=== PATIENT | male | born 1950 | race Caucasian/White ===

== ENCOUNTER 2016-11-26 09:00 | Inpatient (IN) | payer MEDICARE, MEDICAID ==
[~2016-11-26] VITALS: Ht 165.1 cm; Wt 58.7 kg
[~2016-11-26 09:00] MED LIST: ASPI-605 PO; CARV25TA2 PO; FERR325T28 PO; GABA-534 PO; HYDR-4077 PO; HYDR12.55 PO; INSU100C10 SQ; INSU100C7 SQ; SIMV20TA6 PO; VALS160T2 PO
[2016-11-26 09:40] LABS: BASOPHILS % (AUTO) 0.2 % (0.0-2.0); EOSINOPHILS # (AUTO) 0.3 /CMM (0.0-0.7); EOSINOPHILS % (AUTO) 3.9 % (0.0-6.0); HEMATOCRIT 31 % (39-51); HEMOGLOBIN 10.1 g/dL (13.5-17.5); LYMPHOCYTES # (AUTO) 0.5 /CMM (0.8-4.8); LYMPHOCYTES % (AUTO) 6.4 % (20.0-44.0); MEAN CORPUSCULAR HEMOGLOBIN 28 PG (26.0-33.0); MEAN CORPUSCULAR HGB CONC 33 g/dl (31.0-36.0); MEAN CORPUSCULAR VOLUME 84 fL (80-96); MONOCYTES # (AUTO) 0.4 /CMM (0.1-1.30); MONOCYTES % (AUTO) 4.8 % (2.0-12.0); NEUTROPHILS # (AUTO) 7.2 /CMM (1.8-8.9); NEUTROPHILS % (AUTO) 84.7 % (43.0-81.0); PLATELET COUNT (AUTO) 169 /CMM (150-450); RDW COEFFICIENT OF VARIATION 14.2 (11.5-15.0); RED BLOOD CELL COUNT(AUTO) 3.63 MIL/uL (4.5-6.0); WHITE BLOOD COUNT (AUTO) 8.5 K/uL (4.3-11.0)
[2016-11-26] MEDS ORDERED: ONDA-25 PO (09:50)
[2016-11-26] MEDS ORDERED: VALS80TA2 PO (09:50)
[2016-11-26] MEDS ORDERED: PANT40TA4 PO (09:52)
[2016-11-26] MEDS ORDERED: NIFE60TA69 PO (09:53)
[2016-11-26] MEDS ORDERED: SEVE800T8 PO (09:54)
[2016-11-26 10:18] LABS: CALCIUM, SERUM 8.8 mg/dL (8.5-10.1); CARBON DIOXIDE 27 mmol/L (21-32); CHLORIDE 99 mmol/L (98-107); GLUCOSE 130 mg/dL (74-106); POTASSIUM 5.4 mmol/L (3.5-5.1); SODIUM SERUM 138 mmol/L (136-145)
[2016-11-26 10:19] LABS: ALKALINE PHOSPHATASE 82 U/L (46-116); BILIRUBIN,DIRECT 0.2 mg/dL (0.0-0.2); BILIRUBIN,TOTAL 0.5 mg/dL (0.2-1.0); UREA NITROGEN, BLOOD 40 mg/dL (7-18)
[2016-11-26 10:20] LABS: ALANINE AMINOTRANSFERASE 9 U/L (12-78); ALBUMIN 3.4 g/dL (3.4-5.0); ASPARTATE AMINOTRANSFERASE 12 U/L (15-37); TROPONIN I 0.113 ng/mL (0.00-0.056)
[2016-11-26 10:22] LABS: CREATININE 8.7 mg/dL (0.6-1.3)
[2016-11-26] MEDS ORDERED: VANCOMYCIN 1 GM in IV D5W 250 ML IV ONE (10:30)
[2016-11-26] MEDS ORDERED: IV SET PRIMARY PUMP SET 1 EA INFUS.SET MC ONE (10:37)
[2016-11-26 12:00] VITALS: BP 147/69
[2016-11-26] MEDS ORDERED: DOSE PER PHARMACY (MD SPECIFY MEDICATION) 1 EA XX PRN (12:00)
[2016-11-26] MEDS ORDERED: ALBUTEROL FS 2.5 MG/0.5 ML VIAL.NEB NEB PRN (12:00)
[2016-11-26] MEDS ORDERED: IPRATROPIUM NEB FS 0.5 MG/2.5 ML AMPUL.NEB NEB PRN (12:00)
[2016-11-26] MEDS: BLOOD SUGAR DIAGNOSTIC 1 EACH STRIP IN SCH ×2 (12:00→21:44)
[2016-11-26] MEDS ORDERED: ONDANSETRON HCL/PF 4 MG/2 ML VIAL IV PRN (12:00)
[2016-11-26] MEDS ORDERED: DEXTROSE 50%-WATER 50 ML DISP.SYRIN IV PRN (12:00)
[2016-11-26] MEDS ORDERED: ACETAMINOPHEN 650 MG/20.3 ML UDC NG PRN (12:00)
[2016-11-26] MEDS ORDERED: EPOETIN ALFA (10,000 UNIT) 10,000 UNIT/ML VIAL SQ ONE (13:00)
[2016-11-26] MEDS ORDERED: DILTIAZEM HCL 25 MG IV IV STA (13:30)
[2016-11-26] MEDS ORDERED: LEVOFLOXACIN 500 MG /D5W 100ML 500 MG in PREMIX 1 EA IV SCH (14:00)
[2016-11-26 16:00] VITALS: BP 168/83
[2016-11-26] MEDS: CARVEDILOL 12.5 MG TABLET PO SCH (16:53)
[2016-11-26] MEDS: VALSARTAN 80 MG TABLET PO SCH (16:53)
[2016-11-26] MEDS ORDERED: SECONDARY IV SET 1 EA INFUS.SET MC ONE (17:05)
[2016-11-26] MEDS: SEVELAMER CARBONATE 800 MG TABLET PO SCH (18:58)
[2016-11-26 20:00] VITALS: BP 150/57
[2016-11-26] MEDS: GABAPENTIN 300 MG CAPSULE PO SCH (21:44)
[2016-11-26] MEDS: INSULIN REGULAR, HUMAN 100 UNIT/ML 3 ML VIAL SQ PRN (21:54)
[2016-11-26] MEDS: HEPARIN SODIUM, PORCINE 5000 UNITS/1 ML VIAL SQ SCH (21:54)
[2016-11-27] VITALS (7 sets, daily range): BP systolic 108–164; BP diastolic 53–75
[2016-11-27] MEDS: BLOOD SUGAR DIAGNOSTIC 1 EACH STRIP IN SCH ×4 (06:41→21:07)
[2016-11-27 06:43] LABS: BASOPHILS % (AUTO) 0.8 % (0.0-2.0); EOSINOPHILS # (AUTO) 0.5 /CMM (0.0-0.7); EOSINOPHILS % (AUTO) 7.4 % (0.0-6.0); HEMATOCRIT 30 % (39-51); HEMOGLOBIN 9.9 g/dL (13.5-17.5); LYMPHOCYTES # (AUTO) 0.5 /CMM (0.8-4.8); LYMPHOCYTES % (AUTO) 7.5 % (20.0-44.0); MEAN CORPUSCULAR HEMOGLOBIN 28 PG (26.0-33.0); MEAN CORPUSCULAR HGB CONC 33 g/dl (31.0-36.0); MEAN CORPUSCULAR VOLUME 84 fL (80-96); MONOCYTES # (AUTO) 0.3 /CMM (0.1-1.30); NEUTROPHILS # (AUTO) 4.9 /CMM (1.8-8.9); NEUTROPHILS % (AUTO) 79.3 % (43.0-81.0); PLATELET COUNT (AUTO) 143 /CMM (150-450); RDW COEFFICIENT OF VARIATION 14.3 (11.5-15.0); RED BLOOD CELL COUNT(AUTO) 3.55 MIL/uL (4.5-6.0); WHITE BLOOD COUNT (AUTO) 6.1 K/uL (4.3-11.0)
[2016-11-27 07:07] LABS: CALCIUM, SERUM 8.2 mg/dL (8.5-10.1); CREATININE 6.8 mg/dL (0.6-1.3); PHOSPHORUS 4.6 mg/dL (2.5-4.9); POTASSIUM 4.7 mmol/L (3.5-5.1)
[2016-11-27] MEDS: ASPIRIN EC 81 MG TABLET.DR PO SCH (09:03)
[2016-11-27] MEDS: PANTOPRAZOLE 40 MG TABLET.DR PO SCH (09:03)
[2016-11-27] MEDS: SEVELAMER CARBONATE 800 MG TABLET PO SCH ×3 (09:03→17:04)
[2016-11-27] MEDS: CARVEDILOL 12.5 MG TABLET PO SCH ×2 (09:04→20:42)
[2016-11-27] MEDS: NIFEdipine XL 60 MG TAB PO SCH (09:06)
[2016-11-27] MEDS: VALSARTAN 80 MG TABLET PO SCH ×2 (09:07→16:53)
[2016-11-27] MEDS: HEPARIN SODIUM, PORCINE 5000 UNITS/1 ML VIAL SQ SCH ×2 (09:08→20:44)
[2016-11-27] MEDS: INSULIN REGULAR, HUMAN 100 UNIT/ML 3 ML VIAL SQ PRN ×3 (12:17→21:15)
[2016-11-27] MEDS: CEFTRIAXONE 1 G in IV D5W 50 ML IV SCH (20:41)
[2016-11-27] MEDS ORDERED: SECONDARY IV SET 1 EA INFUS.SET MC ONE (20:47)
[2016-11-27] MEDS ORDERED: IV NS 0.9% 250 ML IV ONE (20:47)
[2016-11-27] MEDS: GABAPENTIN 300 MG CAPSULE PO SCH (21:09)
[2016-11-28] MEDS: BLOOD SUGAR DIAGNOSTIC 1 EACH STRIP IN SCH ×4 (06:29→22:22)
[2016-11-28 06:45] LABS: BASOPHILS % (AUTO) 0.7 % (0.0-2.0); EOSINOPHILS # (AUTO) 0.4 /CMM (0.0-0.7); HEMATOCRIT 28 % (39-51); HEMOGLOBIN 9.4 g/dL (13.5-17.5); LYMPHOCYTES # (AUTO) 0.6 /CMM (0.8-4.8); LYMPHOCYTES % (AUTO) 16.1 % (20.0-44.0); MEAN CORPUSCULAR HEMOGLOBIN 28 PG (26.0-33.0); MEAN CORPUSCULAR HGB CONC 34 g/dl (31.0-36.0); MEAN CORPUSCULAR VOLUME 84 fL (80-96); MONOCYTES # (AUTO) 0.3 /CMM (0.1-1.30); MONOCYTES % (AUTO) 7.2 % (2.0-12.0); NEUTROPHILS # (AUTO) 2.5 /CMM (1.8-8.9); PLATELET COUNT (AUTO) 162 /CMM (150-450); RDW COEFFICIENT OF VARIATION 14.4 (11.5-15.0); RED BLOOD CELL COUNT(AUTO) 3.35 MIL/uL (4.5-6.0); WHITE BLOOD COUNT (AUTO) 3.9 K/uL (4.3-11.0)
[2016-11-28 06:59] LABS: PHOSPHORUS 3.9 mg/dL (2.5-4.9); POTASSIUM 4.9 mmol/L (3.5-5.1)
[2016-11-28 08:00] VITALS: BP 126/55
[2016-11-28] MEDS: SEVELAMER CARBONATE 800 MG TABLET PO SCH ×3 (08:49→17:31)
[2016-11-28] MEDS: ASPIRIN EC 81 MG TABLET.DR PO SCH (08:52)
[2016-11-28] MEDS: PANTOPRAZOLE 40 MG TABLET.DR PO SCH (08:52)
[2016-11-28] MEDS: HEPARIN SODIUM, PORCINE 5000 UNITS/1 ML VIAL SQ SCH ×2 (08:59→20:33)
[2016-11-28] MEDS: VALSARTAN 80 MG TABLET PO SCH ×2 (09:00→17:31)
[2016-11-28] MEDS: CARVEDILOL 12.5 MG TABLET PO SCH ×2 (09:00→20:33)
[2016-11-28] MEDS: NIFEdipine XL 60 MG TAB PO SCH (09:00)
[2016-11-28] MEDS ORDERED: LEVOFLOXACIN (500MG) 500 MG TABLET PO SCH (14:00)
[2016-11-28] MEDS: INSULIN REGULAR, HUMAN 100 UNIT/ML 3 ML VIAL SQ PRN ×3 (14:46→22:23)
[2016-11-28] MEDS ORDERED: EPOETIN ALFA (10,000 UNIT) 10,000 UNIT/ML VIAL SQ ONE (15:00)
[2016-11-28 16:00] VITALS: BP 154/70
[2016-11-28] MEDS: LACTOBACILLUS RHAMNOSUS GG 1 EACH CAP.SPRINK PO SCH (17:31)
[2016-11-28 20:00] VITALS: BP 145/65
[2016-11-28] MEDS: CEFTRIAXONE 1 G in IV D5W 50 ML IV SCH (20:33)
[2016-11-28] MEDS: GABAPENTIN 300 MG CAPSULE PO SCH (22:23)
[2016-11-29 06:40] LABS: HEMATOCRIT 31 % (39-51); HEMOGLOBIN 10.1 g/dL (13.5-17.5); MEAN CORPUSCULAR HEMOGLOBIN 27 PG (26.0-33.0); MEAN CORPUSCULAR HGB CONC 33 g/dl (31.0-36.0); MEAN CORPUSCULAR VOLUME 83 fL (80-96); PLATELET COUNT (AUTO) 208 /CMM (150-450); RED BLOOD CELL COUNT(AUTO) 3.69 MIL/uL (4.5-6.0); WHITE BLOOD COUNT (AUTO) 5.6 K/uL (4.3-11.0)
[2016-11-29 06:41] LABS: BASOPHILS % (AUTO) 0.6 % (0.0-2.0); CALCIUM, SERUM 8.2 mg/dL (8.5-10.1); CREATININE 6.3 mg/dL (0.6-1.3); EOSINOPHILS # (AUTO) 0.4 /CMM (0.0-0.7); EOSINOPHILS % (AUTO) 7.2 % (0.0-6.0); LYMPHOCYTES # (AUTO) 0.8 /CMM (0.8-4.8); LYMPHOCYTES % (AUTO) 14.4 % (20.0-44.0); MONOCYTES # (AUTO) 0.4 /CMM (0.1-1.30); MONOCYTES % (AUTO) 7.6 % (2.0-12.0); NEUTROPHILS # (AUTO) 3.9 /CMM (1.8-8.9); NEUTROPHILS % (AUTO) 70.2 % (43.0-81.0); PHOSPHORUS 2.8 mg/dL (2.5-4.9); POTASSIUM 4.7 mmol/L (3.5-5.1)
[2016-11-29] MEDS: BLOOD SUGAR DIAGNOSTIC 1 EACH STRIP IN SCH (06:48)
[2016-11-29] MEDS: INSULIN REGULAR, HUMAN 100 UNIT/ML 3 ML VIAL SQ PRN (06:52)
[2016-11-29 08:00] VITALS: BP 128/59
[2016-11-29] MEDS: LACTOBACILLUS RHAMNOSUS GG 1 EACH CAP.SPRINK PO SCH (08:54)
[2016-11-29] MEDS: SEVELAMER CARBONATE 800 MG TABLET PO SCH (08:54)
[2016-11-29] MEDS: ASPIRIN EC 81 MG TABLET.DR PO SCH (08:54)
[2016-11-29] MEDS: CARVEDILOL 12.5 MG TABLET PO SCH (08:55)
[2016-11-29] MEDS: PANTOPRAZOLE 40 MG TABLET.DR PO SCH (08:55)
[2016-11-29] MEDS: NIFEdipine XL 60 MG TAB PO SCH (08:55)
[2016-11-29 08:56] VITALS: BP 128/59
[2016-11-29] MEDS: VALSARTAN 80 MG TABLET PO SCH (08:56)
[2016-11-29] MEDS: HEPARIN SODIUM, PORCINE 5000 UNITS/1 ML VIAL SQ SCH (09:03)
== END 2016-11-29 15:30 | disposition home or self-care (01) | DRG 193 ==
LOC: ER 09:03 → TELE 10:44 → MED 11-27 08:41
PROVIDERS: ADMIT Internal Medicine Nephrology; ATTEND Internal Medicine Nephrology
PROC: 5A1D60Z (ICD-10-PCS; principal; 2016-11-26)
DX: J15.9 Unspecified bacterial pneumonia (principal); N18.6 End stage renal disease; I21.4 Non-ST elevation (NSTEMI) myocardial infarction; J96.01 Acute respiratory failure with hypoxia; I13.2 Hypertensive heart and chronic kidney disease with heart failure and with stage 5 chronic kidney disease, or end stage renal disease; E87.2 Acidosis; E11.22 Type 2 diabetes mellitus with diabetic chronic kidney disease; I50.9 Heart failure, unspecified; D64.9 Anemia, unspecified; E78.5 Hyperlipidemia, unspecified; E87.5 Hyperkalemia; I25.10 Atherosclerotic heart disease of native coronary artery without angina pectoris; J45.909 Unspecified asthma, uncomplicated; K21.9 Gastro-esophageal reflux disease without esophagitis; Z87.01 Personal history of pneumonia (recurrent); Z99.2 Dependence on renal dialysis; Z99.81 Dependence on supplemental oxygen; I25.2 Old myocardial infarction; J32.9 Chronic sinusitis, unspecified; E83.9 Disorder of mineral metabolism, unspecified
CPT/HCPCS: 36415; 70220-TC; 71010-TC; 80048-TC; 80076-TC; 82962-TC; 83605-TC; 83735-TC; 84100-TC; 84484-TC; 85025-TC; 87040-TC; 87081-TC; 90935-TC; 93307-TC; A4216; A4606; J0696; J0885; J1644; J1815; J1956; J3370; J3490; J7050; J7060; Z7610